=== PATIENT | male | born 1970 | race Caucasian/White ===

== ENCOUNTER 2022-08-23 22:24 | Inpatient (IN) | payer SELFPAY ==
[2022-08-23 22:30] VITALS: BP 195/107; PULSE 114; RESP 20; TEMP 36.4; O2SAT 95; BMI 35.4
[2022-08-23 22:54] VITALS: BP 192/106; PULSE 119; RESP 16; O2SAT 96
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
[2022-08-23] MEDS: OLANZapine 10 mg ODT PO (23:11)
[2022-08-23] MEDS: LORazepam 2 mg Tablet PO (23:11)
--- NOTE | 2022-08-23 23:22 | ECG_ITS ---
[facility] Test Date: 2022-08-23 Pat Name: Willian Hill Department: Room: Gender: Male Counter Intelligence Agent: : 1970 Requested By: Addy Multani Order Number: [id number] Pratik MD: Steve Melo M.D. Measurements Intervals [place] Rate: 110 P: 67 [place]: 164 QRS: -74 QRSD: 155 T: 61 QT: 381 QTc: 516 Interpretive Statements SINUS TACHYCARDIA RIGHT BUNDLE BRANCH BLOCK [120+ ms QRS DURATION, UPRIGHT V1, 40+ ms S IN I/aVL/V4/V5/V6] LEFT ANTERIOR FASCICULAR BLOCK [QRS AXIS <= -45, QR IN I, RS IN II] No previous ECG available for comparison Electronically Signed On 08-24-2022 18:05:23 ACT ENGLISH TUTOR by Steve Melo M.D. [email or web address] hospitalMedt[id number]
--- NOTE | 2022-08-23 23:30 | PC.NURSE ---
96 Hour Hold Patient Rights read to patient. Patient verbalizes understanding of the same. Copy of Rights given to patient.
--- NOTE | 2022-08-23 23:43 | PC.NURSE ---
Patient was read rights and 96 hour hold paper work per house sup and security. Belongings were placed in cabinet, while pt was packing up things he took a nicotene pouch out and stuck it in his mouth and refused to not take it. Patient began to give push back and then cooperated with changing clothes into green scrubs and giving belongings to staff.
--- NOTE | 2022-08-24 | PC.NURSE ---
Informed both nurse and MD of patient glucose being 553.
[2022-08-24 00:01] LABS: Glucose Point of Care 553 mg/dL (70-110)
[2022-08-24 00:10] LABS: Amphetamines Screen Urine Negative (Negative); Barbiturates Screen Urine Negative (Negative); Benzodiazepines Screen Urine Negative (Negative); Cocaine Screen Urine Negative (Negative); Opiate Screen Urine Negative (Negative); PCP Screen Urine Negative (Negative); THC Screen Urine Negative (Negative)
[2022-08-24] MEDS: insulin regular-human 100 units/1 mL 10 UNIT IVP (00:14)
[2022-08-24] MEDS: sodium chloride 0.9% 1,000 ML 999 ML IV ×2 (00:15→02:34)
[2022-08-24 00:49] LABS: Alanine Aminotransferase 45 U/L (0-41); Alkaline Phosphatase 100 U/L (40-130); Aspartate Amino Transferase 18 U/L (0-40); Blood Urea Nitrogen 18 mg/dL (6-20); Calcium 8.8 mg/dL (8.5-10.5); Carbon Dioxide 25 mmol/L (22-29); Chloride 93 mmol/L (98-107); Creatinine Clr Calc Pharmacy 132.8276; Glomerular Filtration Rate 101.9 mL/min (90-130); Glucose 500 mg/dL (65-115); Lipase 60 U/L (13-60); Osmolality Calculated 294 mOsm/kg (285-295); Sodium 130 mmol/L (136-145); Total Bilirubin 0.2 mg/dL (0.15-1.2)
[2022-08-24 00:52] LABS: Acetaminophen < 5.0 ug/mL (10-30); Alcohol Level < 10 mg/dL (0-10); Basophils # 0.1 10^3/uL (0.0-0.1); Basophils % 0.7 %; Eosinophils # 0.1 10^3/uL (0.0-0.8); Eosinophils % 0.9 %; Hematocrit 45.1 % (42.0-52.0); Hemoglobin 15.7 g/dL (11.7-16.6); Lymphocytes # 1.4 10^3/uL (0.8-4.8); Lymphocytes % 15.9 %; Mean Corpuscular HGB Conc 34.8 g/dL (30.0-36.0); Mean Corpuscular Hemoglobin 28.7 pg (28.0-34.0); Mean Corpuscular Volume 82.4 fl (80-94); Mean Platelet Volume 11.1 fL (7.4-10.4); Monocytes # 0.7 10^3/uL (0.2-0.9); Monocytes % 7.5 %; Neutrophils # 6.53 10^3/uL (1.8-7.7); Neutrophils % 74.4 %; Nucleated Red Blood Cells % 0 %; Platelet Count 191 10^3/cmm (130-400); Red Blood Count 5.47 10^6/uL (4.1-5.3); Red Cell Distribution Width 11.7 % (12.1-15.1); Salicylate < 0.3 mg/dL (3-10); White Blood Count 8.8 10^3/uL (4.0-10.0)
[2022-08-24 01:15] LABS: Glucose Point of Care 372 mg/dL (70-110)
[2022-08-24] MEDS: insulin regular-human 100 units/1 mL 5 UNIT IVP (01:36)
[2022-08-24 02:10] LABS: Glucose Point of Care 342 mg/dL (70-110)
[2022-08-24 02:54] LABS: Glucose Point of Care 352 mg/dL (70-110)
[2022-08-24] MEDS: insulin regular-human 100 units/1 mL 8 UNIT IVP (03:26)
[2022-08-24 04:00] VITALS: BP 156/87; PULSE 85; RESP 18; O2SAT 94
[2022-08-24 05:10] LABS: Glucose Point of Care 264 mg/dL (70-110)
[2022-08-24 06:00] VITALS: BP 145/88; PULSE 81; RESP 16; O2SAT 96
[2022-08-24 06:02] LABS: Glucose Point of Care 232 mg/dL (70-110)
--- NOTE | 2022-08-24 07:13 | PC.NURSE ---
WHILE AT DOORWAY PT IS RESTING QUIETLY IN BED SUPINE WITH GOOD CHEST RISE AND FALL.
--- NOTE | 2022-08-24 07:23 | PC.PHAR ---
pt unable to verify medications-ext med history doesnt show anything filled recently- ext med history shows clindamycin 300mg tid as directed and ibuprofen 800mg tid from 07/05/22
--- NOTE | 2022-08-24 11:26 | PC.NURSE ---
WHILE AT BEDSIDE PT IS OFFERED NICOTINE PATCH HE STATES, I'M NOT TAKING THAT IT WILL LIKE ABSORB THROUGH MY SKIN . I THEN ASKED IF HE WANTED ME TO SAVE IT FOR LATER IF HE CHANGED HIS MIND HE STATED, YEAH .
--- NOTE | 2022-08-24 13:49 | PC.NURSE ---
report given to madonna whaley in npu.
[2022-08-24 13:58] VITALS: BP 166/109; PULSE 98; RESP 18; O2SAT 100
[2022-08-24 14:00] VITALS: BP 181/103; PULSE 100; RESP 20; TEMP 36.9; O2SAT 96
[2022-08-24 14:49] VITALS: RESP 18
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
[2022-08-24 17:39] LABS: Glucose Point of Care 454 mg/dL (70-110)
[2022-08-24] MEDS: insulin lispro 100 unit/1 mL SUBCUT ×2 (17:56→19:53)
[2022-08-24 19:43] LABS: Glucose Point of Care 565 mg/dL (70-110)
[2022-08-24] MEDS: nicotine 2 mg Gum BUCCAL (20:13)
[2022-08-24 20:54] LABS: Glucose Point of Care 467 mg/dL (70-110)
[2022-08-24 22:00] VITALS: BP 150/80; PULSE 104; RESP 17; TEMP 36.6; O2SAT 96
[2022-08-24 22:34] LABS: Glucose Point of Care 329 mg/dL (70-110)
[2022-08-24] MEDS: metformin 500 mg Tablet PO (22:40)
[2022-08-24] MEDS: nicotine 4 mg lozenge MUCOUS MEM (22:45)
[2022-08-24] MEDS: pregabalin 100 mg Capsule PO (23:56)
[2022-08-24] MEDS: LORazepam 2 mg Tablet PO (23:56)
[2022-08-24] MEDS: trazodone 50 mg Tablet PO (23:56)
[2022-08-25] MEDS: nicotine 4 mg lozenge MUCOUS MEM ×7 (01:55→23:27)
--- NOTE | 2022-08-25 05:27 | PC.NURSE ---
upon admission, patient shift report patient BS 454, at 1936 BS 565, provider notified and patient insulin sliding scale changed to high, 18 units per protocol given and verified by another RN, rechecked at 0 BS 467, provider gave orders for Metformin once tonight and BID with meals starting tomorrow, at 2230 BS 329, pt has continues to irritable, intrusive, and demanding, making statements is the doctor giving me crazy meds Explained he would see the psychiatrist tomorrow. Charge nurse discussed with patient importance of current home meds (pt previous refusing to disclose), charge nurse called provider for orders and meds given. Pt has been sleeping with no distress noted.
[2022-08-25 08:00] LABS: Glucose Point of Care 345 mg/dL (70-110)
[2022-08-25] MEDS: pregabalin 100 mg Capsule PO ×2 (08:30→17:35)
[2022-08-25] MEDS: metformin 500 mg Tablet PO (08:30)
[2022-08-25] MEDS: insulin lispro 100 unit/1 mL SUBCUT ×4 (08:30→22:02)
--- NOTE | 2022-08-25 09:33 | PC.OT ---
OT sammyal attempted - Patient asleep at time of evaluation, will attempt again this afternoon.
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
[2022-08-25 12:03] LABS: Glucose Point of Care 372 mg/dL (70-110)
[2022-08-25 14:00] VITALS: BP 156/75; PULSE 108; RESP 18; TEMP 36.6; O2SAT 93
[2022-08-25 17:10] LABS: Glucose Point of Care 444 mg/dL (70-110)
[2022-08-25] MEDS: metformin XR 500 MG Tablet PO (17:35)
[2022-08-25] MEDS: famotidine 20 mg Tablet PO (17:35)
[2022-08-25 19:56] LABS: Glucose Point of Care 405 mg/dL (70-110)
[2022-08-25 20:43] VITALS: BP 136/106; PULSE 104; RESP 18; TEMP 36.9; O2SAT 97
[2022-08-25] MEDS: acetaminophen 325 mg Tablet 650 MG PO (22:03)
[2022-08-25] MEDS: trazodone 50 mg Tablet PO (22:04)
[2022-08-25 23:29] LABS: Glucose Point of Care 342 mg/dL (70-110)
[2022-08-26] MEDS: OLANZapine 5 mg ODT PO ×2 (01:29→20:10)
[2022-08-26] MEDS: nicotine 4 mg lozenge MUCOUS MEM ×8 (01:29→23:19)
[2022-08-26] MEDS: acetaminophen 325 mg Tablet 650 MG PO ×2 (04:23→22:29)
[2022-08-26 06:00] VITALS: RESP 18
--- NOTE | 2022-08-26 06:55 | PC.NURSE ---
BS at shift change 406 - 18 units given, provider notified, pt continues to eat snacks throughout the night, diabetic education provided. pt verbalizes understanding.
[2022-08-26 07:36] LABS: Glucose Point of Care 307 mg/dL (70-110)
[2022-08-26] MEDS: pregabalin 100 mg Capsule PO ×2 (08:23→18:02)
[2022-08-26] MEDS: amlodipine 5 mg Tablet PO (08:23)
[2022-08-26] MEDS: metformin XR 500 MG Tablet PO ×2 (08:23→18:04)
[2022-08-26] MEDS: famotidine 20 mg Tablet PO ×2 (08:23→18:02)
[2022-08-26] MEDS: insulin lispro 100 unit/1 mL SUBCUT ×4 (08:26→20:01)
[2022-08-26 12:12] LABS: Glucose Point of Care 333 mg/dL (70-110)
[2022-08-26 14:00] VITALS: BP 149/91; PULSE 91; RESP 18; TEMP 36.6; O2SAT 98
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
[2022-08-26 17:16] LABS: Glucose Point of Care 327 mg/dL (70-110)
[2022-08-26 19:59] LABS: Glucose Point of Care 458 mg/dL (70-110)
[2022-08-26] MEDS: hyDROXYzine 25 mg Capsule 50 MG PO (20:10)
[2022-08-26 21:13] VITALS: BP 139/91; PULSE 107; TEMP 36.6; O2SAT 95
[2022-08-26 21:14] VITALS: BP 180/103
[2022-08-26] MEDS: ondansetron 4 MG Tablet PO (21:22)
[2022-08-26] MEDS: trazodone 50 mg Tablet PO ×2 (21:24→22:32)
[2022-08-27] VITALS (7 sets, daily range): BP systolic 153–168; BP diastolic 93–118; PULSE 86–108; RESP 18; TEMP 36.4–36.9; O2SAT 96
[2022-08-27] MEDS: nicotine 4 mg lozenge MUCOUS MEM ×7 (05:30→23:47)
[2022-08-27] MEDS: amlodipine 5 mg Tablet PO (05:42)
--- NOTE | 2022-08-27 05:43 | PC.NURSE ---
pt vitals were taken by LAUNDRY OPERATOR FINISHING. pt bp was hypertensive 157/101. bp was taken again a few minutes later and was still hypertensive 153/113. norvasc was given early as ordered.
--- NOTE | 2022-08-27 05:44 | PC.NURSE ---
Hypertension medication given early at this time for a BP of 157/101. a recheck of 153/113. Will recheck BP in 1 hour
--- NOTE | 2022-08-27 06:29 | PC.NURSE ---
RN notified of increased BP not relieved by norvasc. recheck of BP at this time :157/116
[2022-08-27] MEDS: cloNIDine 0.1 mg Tablet PO ×2 (06:53→20:25)
[2022-08-27 08:17] LABS: Glucose Point of Care 397 mg/dL (70-110)
[2022-08-27] MEDS: insulin lispro 100 unit/1 mL SUBCUT ×4 (09:17→20:25)
[2022-08-27] MEDS: pregabalin 100 mg Capsule PO ×2 (09:18→17:49)
[2022-08-27] MEDS: famotidine 20 mg Tablet PO ×2 (09:18→17:49)
[2022-08-27] MEDS: metformin XR 500 MG Tablet PO ×2 (09:18→17:49)
[2022-08-27 11:53] LABS: Glucose Point of Care 356 mg/dL (70-110)
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
[2022-08-27 17:33] LABS: Glucose Point of Care 380 mg/dL (70-110)
[2022-08-27] MEDS: trazodone 50 mg Tablet PO ×2 (20:36→22:19)
[2022-08-27] MEDS: simethicone 80 mg Chew PO (22:21)
[2022-08-28 00:36] VITALS: BP 153/84
[2022-08-28 01:37] LABS: Glucose Point of Care 483 mg/dL (70-110)
[2022-08-28] MEDS: hyDROXYzine 25 mg Capsule 50 MG PO (01:57)
[2022-08-28] MEDS: nicotine 4 mg lozenge MUCOUS MEM ×5 (01:57→18:30)
[2022-08-28 06:00] VITALS: BP 156/94; PULSE 92; RESP 20; TEMP 36.6; O2SAT 97
[2022-08-28 08:28] LABS: Glucose Point of Care 339 mg/dL (70-110)
[2022-08-28] MEDS: insulin lispro 100 unit/1 mL SUBCUT ×3 (09:17→18:29)
[2022-08-28] MEDS: metformin XR 500 MG Tablet PO ×2 (09:33→14:26)
[2022-08-28] MEDS: pregabalin 100 mg Capsule PO ×2 (09:34→18:30)
[2022-08-28] MEDS: famotidine 20 mg Tablet PO ×2 (09:34→18:30)
[2022-08-28] MEDS: amlodipine 5 mg Tablet PO (09:34)
[2022-08-28 12:52] LABS: Glucose Point of Care 290 mg/dL (70-110)
[2022-08-28 14:00] VITALS: RESP 18
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
[2022-08-28 17:17] VITALS: BP 156/94; PULSE 92; RESP 20; TEMP 36.6; O2SAT 97
[2022-08-28] MEDS: metformin XR 500 MG Tablet 1000 MG PO (18:30)
--- NOTE | 2022-08-28 19:15 | PC.NURSE ---
Discharge information reviewed with patient, including the importance of following his diabetic diet, signs/symptoms of hyper and hypogylcemia, questions regarding blood sugar testing, difference between Type I and Type II diabetes, and metformin. Pt verbalized his understanding. His appointments and prescriptions were reviewed. Staff stressed the importance of the pt attending his appointment on 08/30/22 so he could get his diabetes under control. Pt verbalized his understanding. Pt left ambulatory with his belongings, including his glucose testing supplies, accompanied by his mother. He denied complaints at time discharge.
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
== END 2022-08-28 20:06 | disposition home or self-care (01) | DRG 882 ==
LOC: ER 22:45 → ER IP 08-24 06:34 → NP 08-24 13:47
PROVIDERS: Admitting Provider Psychiatry & Neurology Psychiatry; Emergency Provider Emergency Medicine; Visit Provider Psychiatry & Neurology Psychiatry
DX: F43.25 Adjustment disorder with mixed disturbance of emotions and conduct (principal); M54.50 Low back pain, unspecified; Z59.01 Sheltered homelessness
CPT/HCPCS: 36416; 80053; 80306; 80307; 82962; 83690; 85025; 93005; 96361; 96372; 96374; 97165; 99238; 99285; J1815; J7030; Q0162